=== PATIENT | male | born 2005 | race Caucasian/White ===

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

== ENCOUNTER 2024-12-25 15:59 | Emergency (ER) | payer BC ==
[~2024-12-25] VITALS: Ht 177.8 cm; Wt 81.6 kg
[~2024-12-25 15:59] MED LIST changes: +AMOX-CLAV 875-1 EACH PO
[2024-12-25] MEDS ORDERED: PREDNISONE20 M1 PO (16:20)
[2024-12-25] MEDS ORDERED: methylPREDNISolone sod succ 125 MG VIAL IM ONE (16:20)
[2024-12-25] MEDS ORDERED: CLOBETASOL PROPIONATE 30 GM TUBE T ONE (16:40)
[2024-12-25] MEDS ORDERED: CLOBETASOL PROPIONATE 30 GM TUBE T SCH (18:00)
== END 2024-12-25 16:31 | disposition home or self-care (01) ==
LOC: ED 15:59
DX: L25.9 Unspecified contact dermatitis, unspecified cause (principal)